=== PATIENT | male | born 1995 | race Caucasian/White ===

== ENCOUNTER → 2016-12-23 | Outpatient (CLI) | payer OTHER ==
[~2016-12-23] MED LIST: DESYREL 50MG50 MG; DIFFERIN0.3% TP; HUMALOG100 U/ML; LEXAPRO 5MG5 MG; PROVENTIL0.09 MG/A1 IH; ZOFRAN8 MG PO
== END ==
LOC: BHSO 08:51
DX: F41.0 Panic disorder [episodic paroxysmal anxiety] (principal)
CPT/HCPCS: 90791-AI

== ENCOUNTER → 2017-02-01 | Outpatient (CLI) | payer OTHER | LOC: BHSO 15:29 | DX: F41.0 Panic disorder [episodic paroxysmal anxiety] (principal) ==

== ENCOUNTER → 2017-03-02 | Outpatient (CLI) | payer OTHER | LOC: BHSO 13:27 | DX: F41.0 Panic disorder [episodic paroxysmal anxiety] (principal) ==

== ENCOUNTER → 2017-04-01 | Outpatient (CLI) | payer OTHER | LOC: BHSO 11:02 | DX: F41.0 Panic disorder [episodic paroxysmal anxiety] (principal) ==

== ENCOUNTER 2017-04-10 12:22 | Emergency (ER) | payer OTHER ==
[~2017-04-10] VITALS: Ht 172.7 cm; Wt 81.8 kg
[~2017-04-10 12:22] MED LIST changes: -DESYREL 50MG50 MG; -LEXAPRO 5MG5 MG; -ZOFRAN8 MG PO
[2017-04-10 12:25] VITALS: TEMP 97.7
[2017-04-10] MEDS ORDERED: LEXAPRO 5MG5 MG (12:28)
[2017-04-10] MEDS ORDERED: DESYREL 50MG50 MG (12:29)
[2017-04-10 12:57] LABS: BASO # 0.1 (0.0-0.2); BASO % 0.4 % (0.0-2.0); EOS # 0.1 (0.0-0.7); EOS % 0.4 % (0-4.0); GRAN # 12.3 (1.4-6.5); GRAN % 87.7 % (42.2-75.2); HEMATOCRIT 46.3 % (42.0-52.0); HEMOGLOBIN 16.1 g/dl (13.5-18.0); LYMPH # 1.2 (1.2-3.4); LYMPH % 8.9 % (20.0-51.0); MEAN CELL VOLUME 82 fl (80.0-100.0); MEAN CORPUSCULAR HEMOGLOBIN 28 pg (27.0-31.0); MEAN CORPUSCULAR HGB CONC 35 g/dl (33.0-37.0); MEAN PLATELET VOLUME 9.9 fl (7.4-10.4); MONO # 0.3 (0.1-0.6); MONO % 2.1 % (1.7-9.3); PLATELET COUNT 263 K/mm3 (130-400); RED BLOOD COUNT 5.67 M/mm3 (4.20-5.60); REDCELL DISTRIBUTION WIDTH-CV 12.3 % (11.5-14.5)
[2017-04-10 13:01] LABS: ADJUSTED CALCIUM 9.4 mg/dL (8.4-10.2); ALANINE AMINOTRANSFERASE 47 U/L (21-72); ALBUMIN 4.9 gm/dL (3.5-5.0); ALKALINE PHOSPHATASE 110 U/L (50-136); ANION GAP 21 mmol/L (7-16); BILIRUBIN,TOTAL 1.6 mg/dL (0.0-1.0); BLOOD UREA NITROGEN 18 mg/dL (9-20); CALCIUM 10.1 mg/dL (8.4-10.2); CARBON DIOXIDE 17 mmol/L (22-30); CHLORIDE 96 mmol/L (98-107); CREATININE, serum 0.86 mg/dL (0.66-1.25); GLUCOSE 352 mg/dL (74-106); LIPASE 33 U/L (23-300); POTASSIUM 4.8 mmol/L (3.4-5.0); SODIUM 134 mmol/L (137-145); TOTAL PROTEIN 8.1 gm/dL (6.4-8.2)
[2017-04-10] MEDS ORDERED: ZOFRAN8 MG PO (13:42)
[2017-04-10 14:59] VITALS: BP 111/50; PULSE 105
== END 2017-04-10 15:03 | disposition home or self-care (01) ==
LOC: COL.ER 12:22
PROVIDERS: Emergency Medicine
DX: E13.10 Other specified diabetes mellitus with ketoacidosis without coma (principal); E86.9 Volume depletion, unspecified; F10.129 Alcohol abuse with intoxication, unspecified; R11.10 Vomiting, unspecified; Z79.4 Long term (current) use of insulin; Z96.41 Presence of insulin pump (external) (internal); J45.909 Unspecified asthma, uncomplicated
CPT/HCPCS: J1885; J2405; J2765; J7030

== ENCOUNTER → 2017-07-01 | Outpatient (CLI) | payer OTHER ==
[~2017-07-01] MED LIST changes: +DESYREL 50MG50 MG; +LEXAPRO 5MG5 MG; +ZOFRAN8 MG PO
== END ==
LOC: BHSO 10:30
DX: F41.0 Panic disorder [episodic paroxysmal anxiety] (principal)

== ENCOUNTER → 2017-10-27 | Outpatient (CLI) | payer OTHER | LOC: BHSO 10:28 | DX: F41.0 Panic disorder [episodic paroxysmal anxiety] (principal) | CPT/HCPCS: G0463 ==